=== PATIENT | female | born 1985 | race African-American/Black ===

== ENCOUNTER 2017-06-05 10:50 | Emergency (ER) | payer OTHER ==
[2017-06-05 11:11] VITALS: BP 171/111; BMI 42.8
== END 2017-06-05 13:25 | disposition left against medical advice (07) ==
LOC: ER 11:22
DX: R06.02 Shortness of breath (principal)
CPT/HCPCS: 99281

== ENCOUNTER 2017-06-06 02:07 | Emergency (ER) | payer OTHER ==
[2017-06-06 02:23] VITALS: BP 160/87; BMI 38.9
--- NOTE | 2017-06-06 02:36 | DR.GENAD ---
HPI - PCP Primary Care Physician: nfd - HPI Comment HPI Comment: Pt c/o increase nervousness, heart racing, sweaty palms, facial flushing and trembling all over for ~ 1month. she denies fever ,chills and sweats. - Complaint/Symptoms Chief Complaint Doctors Comments: " I get so nervous" Chief Complaint:: shaking, jittery Self Treatment fo Chief Complaint: pt took dramamine at home around 2330 - Nurses notes reviewed Nurses Notes Review: Yes - Source History Provided: Patient - Mode of Arrival Mode of Arrival: EMS - Timing Onset of Chief Complaint: 05/07/17 Came on: Suddenly - Duration Duration: Intermittent - Severity Severity: Moderate PMH - PMH Past Medical History: Yes Past Medical History: Hypertension Past Surgical History: No - Family History History of Family Medical Conditions: Yes Family Medical History: Hypertension - Social History Does patient currently use any type of tobacco product: No Have you used tobacco products in the last 12 months: No Type of Tobacco Use: None Does any household member use tobacco: No Alcohol Use: None Do you use any recreational Drugs:: No Lives With: Family Lives Where: Home - infectious screening In the last 2 months have you had wt loss of >10#?: NO Have you had fever, night sweats or hemotysis?: No Have you traveled outside the country in the last 6 months?: No Isolation: Standard ROS - Review of Systems Constitutional: Irritable Eyes: No Symptoms Reported ENTM: No Symptoms Reported Respiratoy: Short of Breath Cardiovascular: Palpitations Gastrointestinal/Abdominal: No Symptoms Reported Genitourinary: No Symptoms Reported Neurological: Anxiety, Tingling, Tremors Musculoskeletal: No Symptoms Reported Integumentary: No Symptoms Reported Hematologic/Lymphatic: No Symptoms Reported Endocrine: No Symptoms Reported Psychiatric: No Symptoms Reported All Other Systems: Reviewed and Negative PE - Vital Signs Vitals: Temperature 98.3 F Pulse Rate 84 Respiratory Rate 16 Blood Pressure 160/87 O2 Sat by Pulse Oximetry 100 - General Limitations: No Limitations General Appearance: Alert, Anxious - Head Head Exam: Normal Inspection - Eyes Eye exam: Normal Appearance - ENT ENT Exam: Normal Exam External Ear Exam: Normal External Inspection Nose Exam: Normal Nose Exam Mouth Exam: Normal Inspection Throat Exam: Normal Inspection - Neck Neck Exam: Normal Inspection - Chest Chest Inspection: Normal Inspection - Respiratory Respiratory Exam: Normal Lung Sounds Bilat Respiratory Exam: Bilateral Clear to Auscultation - Cardiovascular Cardiovascular Exam: Regular Rate, Normal Rhythm, Normal Heart Sounds - Abdominal Exam Abdominal Exam: Normal Inspection, Normal Bowel Sounds, Soft - Extremities Extremities Exam: Normal Inspection, Full ROM - Back Back Exam: Normal Inspection, Full ROM - Neurologic Neurological Exam: Alert, Oriented X3, CN II-XII Intact - Psychiatric Psychiatric Exam: Agitated, Anxious - Skin Skin Exam: Warm, Dry, Intact, Normal Color [facility] - Differential Diagnosis Differential Diagnosis: anxiety attack, Panic attack - Diagnosis Discharge Problem: Panic attacks - Discharge Plan Condition: Stable Prescriptions: Hydroxyzine Pamoate [Vistaril] 25 mg PO BID #10 cap - Follow ups/Referrals Follow ups/Referrals: NFD,None [Primary Care Provider] - 3 days - Instructions Instructions: Panic Attacks, [id number]
[2017-06-06] MEDS ORDERED: ATIVAN INJ 2 MG VIAL ONE (02:37)
[2017-06-06] MEDS ORDERED: ATIVAN INJ 2 MG VIAL IVP ONE (02:42)
--- NOTE | 2017-06-06 02:53 | RAD ---
EXAM: Chest X-ray INDICATION: Palpitations COMPARISION: Prior exam from November 27, 2015 TECHNIQUE: AP, single view FINDINGS: The lungs are clear in the lung volumes are within normal limits. No pleural effusion or pneumothorax . The cardiac silhouette and mediastinum are normal. The regional skeleton is intact. IMPRESSION: Normal Chest X-Ray Reported By:
== END 2017-06-06 03:25 | disposition home or self-care (01) ==
LOC: ER 02:07
DX: F41.0 Panic disorder [episodic paroxysmal anxiety] (principal)
CPT/HCPCS: 71010; 93005; 93010; 96365; 96374; 99283; J2060

== ENCOUNTER 2018-02-23 15:05 | Emergency (ER) | payer OTHER ==
[2018-02-23 15:13] VITALS: BP 171/82; BMI 41.8
--- NOTE | 2018-02-23 16:19 | DR.GENAD ---
HPI - PCP Primary Care Physician: TONIO - HPI Comment HPI Comment: NO FEVER. DRAINAGE MORE TODAY. - Complaint/Symptoms Chief Complaint Doctors Comments: RIGHT AXILLAR ABSCESS DRAINING FOR FEW DAYS. SAME ABSCESS DRAIN 2WKS AGO. NOW DRAINIG AGAIN. Chief Complaint:: Pt c/o risen under right arm for about 2 weeks. About two weeks ago area popped and had a good amount of drainage with foul odor. Since then area has gotten bigger and her arm up to her should feels very tight. - Nurses notes reviewed Nurses Notes Review: Yes - Source History Provided: Patient - Mode of Arrival Mode of Arrival: Ambulatory - Timing Onset of Chief Complaint: 02/10/18 Came on: Suddenly - Duration Duration: Constant Duration: Days - Severity Severity: Moderate PMH - PMH Past Medical History: Yes Past Medical History: Hypertension Past Surgical History: No - Family History History of Family Medical Conditions: Yes Family Medical History: Hypertension - Social History Does patient currently use any type of tobacco product: No Have you used tobacco products in the last 12 months: No Type of Tobacco Use: None Does any household member use tobacco: Yes Alcohol Use: None Do you use any recreational Drugs:: No Lives With: Spouse Lives Where: Home - infectious screening In the last 2 months have you had wt loss of >10#?: NO Have you had fever, night sweats or hemotysis?: No Have you traveled outside the country in the last 6 months?: No Isolation: Standard ROS - Review of Systems Constitutional: No Symptoms Reported Eyes: No Symptoms Reported ENTM: No Symptoms Reported Respiratoy: No Symptoms Reported Cardiovascular: No Symptoms Reported Gastrointestinal/Abdominal: No Symptoms Reported Genitourinary: No Symptoms Reported Neurological: No Symptoms Reported Musculoskeletal: Muscle Pain Integumentary: Change in Color, Other (RIGHT AXILLA ABSCESS DRAINING.) Hematologic/Lymphatic: No Symptoms Reported Endocrine: No Symptoms Reported All Other Systems: Reviewed and Negative PE - Vital Signs Vitals: Temperature 97.6 F Pulse Rate 90 Respiratory Rate 20 Blood Pressure 171/82 O2 Sat by Pulse Oximetry 100 - General Limitations: No Limitations General Appearance: Alert - Head Head Exam: Normal Inspection - Eyes Eye exam: Normal Appearance - ENT ENT Exam: Normal External Ear Exam External Ear Exam: Normal External Inspection TM/Canal Exam: Bilateral Normal Nose Exam: Normal Nose Exam Mouth Exam: Normal Inspection Throat Exam: Normal Inspection - Neck Neck Exam: Trachea Midline - Chest Chest Inspection: Symmetric Chest Wall Rise - Respiratory Respiratory Exam: Normal Lung Sounds Bilat Respiratory Exam: Bilateral Clear to Auscultation - Cardiovascular Cardiovascular Exam: Regular Rate, Normal Rhythm, Normal Heart Sounds - Abdominal Exam Abdominal Exam: Normal Bowel Sounds, Soft. negative: Tenderness - Extremities Extremities Exam: Normal Inspection - Back Back Exam: Normal Inspection - Neurologic Neurological Exam: Alert, Oriented X3, CN II-XII Intact. negative: Motor Sensory Deficit - Psychiatric Psychiatric Exam: Normal Affect, Normal Mood - Skin Skin Exam: Erythema, Other (RT AXILLA ABSCESS DRAINIG. SICE OF SARAH JULINE.) MDM - Additional Information Additional Information Obtained From: Family - Differential Diagnosis Differential Diagnosis: ABSCESS AND CELLULITIS RT AXILLA. Course - Treatment Treatment: SEE ORDERS. - Education/Counseling Education/Counseling: Patient, Education Educated On: Treatment, Diagnosis, Needs for Follow Up ROR - Labs Reviewed Laboratory: 02/23/18 16:39 Axilla - Right Gram Stain - Final - Diagnosis Discharge Problem: Abscess Cellulitis Qualifiers: Site of cellulitis: extremity Site of cellulitis of extremity: axilla Laterality: right Qualified Code(s): L03.111 - Cellulitis of right axilla - Discharge Plan Disposition: 01 HOME, SELF-CARE Condition: Stable Prescriptions: Ibuprofen [MOTRIN TAB 800 MG *] 800 mg PO Q8H PRN #30 tab PRN Reason: Pain/Inflammation Sulfamethoxazole-Trimethoprim [BACTRIM DS TAB 800/160 MG *] 1 tab PO BID #20 tab - Follow ups/Referrals Follow ups/Referrals: NFD,None [Primary Care Provider] - 3 days - Instructions Instructions: Skin Abscess, Diwo-vi-Uett, Cellulitis, Adult, Zuyy-mr-Afuk Additional Instructions: RETURN TO ED IF WORSE.
[2018-02-23] MEDS ORDERED: MOTRIN TAB 800 MG PO ONE ×2 (17:05→17:13)
[2018-02-23] MEDS ORDERED: BACTRIM DS TAB PO ONE ×2 (17:05→17:13)
== END 2018-02-23 17:15 | disposition home or self-care (01) ==
LOC: ER 15:19
DX: L02.411 Cutaneous abscess of right axilla (principal); L03.111 Cellulitis of right axilla; B96.4 Proteus (mirabilis) (morganii) as the cause of diseases classified elsewhere
CPT/HCPCS: 87070; 87075; 87077; 87186; 87205; 99282; 99283

== ENCOUNTER 2021-07-06 07:27 | Inpatient (IN) ==
[2021-07-06] MEDS ORDERED: LR 1000 ML IV 1,000 ML IV ONE (07:34)
[2021-07-06] MEDS ORDERED: ANCEF 1 GRAM IV PREMIX* 2 G/100 ML BAG IV ONE (07:35)
[2021-07-06] MEDS ORDERED: ZEMURON 50 MG VIAL ONE (08:46)
[2021-07-06] MEDS ORDERED: FENTANYL VIAL INJ 100 mcg ONE (08:46)
[2021-07-06] MEDS ORDERED: BRIDION ONE (08:46)
[2021-07-06 09:02] LABS: SERUM PREGNANCY TEST, QUAL NEGATIVE <10 mIU/mL
[2021-07-06] MEDS ORDERED: SUPRANE ONE ×2 (09:03→09:39)
[2021-07-06] MEDS ORDERED: VERSED ONE (09:03)
[2021-07-06] MEDS ORDERED: DIPRIVAN VIAL ONE (09:03)
[2021-07-06] MEDS ORDERED: XYLOCAINE 2 % (PLAIN) ONE (09:03)
[2021-07-06] MEDS ORDERED: LTA KIT LIDOCAINE 4% ONE (09:03)
[2021-07-06] MEDS ORDERED: ZOFRAN INJ 4 MG VIAL ONE (09:03)
[2021-07-06] MEDS ORDERED: DECADRON INJ ONE (09:03)
[2021-07-06] MEDS ORDERED: XYLOCAINE 1 % (PLAIN) ONE (09:09)
[2021-07-06] MEDS ORDERED: POLYMYXIN B SULFATE ONE (09:09)
[2021-07-06] MEDS ORDERED: MARCAINE 0.5% ONE (09:24)
[2021-07-06] MEDS ORDERED: VANCOMYCIN HCL ONE (09:46)
[2021-07-06] MEDS ORDERED: NS 100 ML IV 100 ML ONE ×2 (09:47→09:51)
[2021-07-06] MEDS ORDERED: MARCAINE or SENSORCAINE 0.25% WITH EPI IJ ONE (10:21)
[2021-07-06] MEDS ORDERED: BARHEMSYS INJ IVP PRN (10:45)
[2021-07-06] MEDS ORDERED: BENADRYL INJ 50 MG VIAL IVP PRN (10:45)
[2021-07-06] MEDS ORDERED: PHENERGAN INJ 25 MG IM PRN (10:45)
[2021-07-06] MEDS ORDERED: ZOFRAN INJ 4 MG VIAL IVP PRN ×2 (10:45→11:09)
[2021-07-06] MEDS ORDERED: REGLAN INJ 10 MG VIAL IVP PRN (10:45)
[2021-07-06] MEDS ORDERED: DILAUDID INJ ONE (10:47)
[2021-07-06] MEDS: DILAUDID INJ IVP PRN ×4 (10:50→11:15)
[2021-07-06 10:58] VITALS: BMI 47.1
[2021-07-06] MEDS ORDERED: PERCOCET TAB 5/325 MG PO PRN (11:09)
[2021-07-06] MEDS: VANCOMYCIN IV *PREMIX 1 G/200 ML BAG 1 G/200 ML PIGGYBACK IV SCH ×2 (12:17→21:45)
--- NOTE | 2021-07-06 12:40 | OR.IMMED ---
Immediate Post-Op Note - Immediate Post-Op Note Pre-Op Diagnosis: recurrent hydradenitis suppurativa with abscesses and sinuses Post-Op Diagnosis: same with multiple abscesses and sinus tracts , induration with chronic and acute infection both axilla .... Procedure: excision , debridement of bilateral hydradenitis with packing . Surgeon/Revenue Accountant: Dr Alexander Specimens Removed: skin and sub cutaneous tissue Drains: Roberto Complications: none . Condition: Stable (to keep on IV ATB , pain control .)
[2021-07-06] MEDS: MELATONIN PO PRN (23:00)
[2021-07-07 06:42] LABS: BASOPHILS % (AUTO) 0.5 % (0.2-1.0); EOSINOPHILS % (AUTO) 0.1 % (0.9-2.9); HEMATOCRIT 37.1 % (36.0-47.0); HEMOGLOBIN 12.9 g/dL (12.0-16.0); LYMPHOCYTES # (AUTO) 2.3 X10^3/uL (1.3-2.9); LYMPHOCYTES % (AUTO) 27.6 % (21.0-51.0); MEAN CORPUSCULAR HEMOGLOBIN 30.5 pg (27.0-34.0); MEAN CORPUSCULAR HGB CONC 34.9 g/dL (33.0-35.0); MEAN CORPUSCULAR VOLUME 87.7 fL (80.0-100.0); MEAN PLATELET VOLUME 7.4 fL (7.4-11.0); MONOCYTES # (AUTO) 0.5 x10^3/uL (0.3-0.8); MONOCYTES % (AUTO) 6.4 % (0.0-13.0); NEUTROPHILS # (AUTO) 5.5 x10^3/uL (2.2-4.8); NEUTROPHILS % (AUTO) 65.4 % (42.0-75.0); PLATELET COUNT 294 X10^3/uL (150.0-450.0); RED BLOOD COUNT 4.23 X10^6/uL (3.5-5.4); RED CELL DISTRIBUTION WIDTH 12.9 % (11.6-16.5); WHITE BLOOD COUNT 8.4 X10^3/uL (3.6-10.0)
[2021-07-07 06:59] LABS: ALANINE AMINOTRANSFERASE 19 Units/L (12-78); ALBUMIN 3.2 g/dL (3.4-5.0); ALKALINE PHOSPHATASE 52 Units/L (46-116); ASPARTATE AMINO TRANSFERASE 13 Units/L (15-37); BLOOD UREA NITROGEN 7 mg/dL (7-18); CALCIUM 8.4 mg/dL (8.5-10.1); CARBON DIOXIDE 23.7 mmol/L (21-32); CHLORIDE 104 mmol/L (98-107); COR NA(FOR HYPERGLY) 136 mmol/L (136-145); CREATININE 0.64 mg/dL (0.55-1.02); SODIUM 135 mmol/L (136-145); eGFR NON BLACK RACES > 60 (>60)
[2021-07-07] MEDS: VANCOMYCIN IV *PREMIX 1 G/200 ML BAG 1 G/200 ML PIGGYBACK IV SCH ×2 (08:12→21:37)
--- NOTE | 2021-07-07 09:04 | DR.PROGNOT ---
Hospital Progress Notes - Progress Note for Day of: Progress Note Date: 07/07/21 - Chief Complaint Chief Complaint: having moderate drainage through the dressings .. CBC and CMP are normal .. BS 125 - Past Medical Family Social History Past Med/Fam/Surg Hx: No changes since H&P Allergies: Allergies sulfamethoxazole [From Bactrim] Adverse Reaction (Intermediate, Verified 07/06/21 07:50) blisters trimethoprim [From Bactrim] Adverse Reaction (Intermediate, Verified 07/06/21 07:50) blisters - Review Of Systems ROS: No change since H&P - Vital Signs Vital Signs: Temperature 97.9 F Pulse Rate [Left Brachial] 76 Pulse Rate 66 Respiratory Rate 18 Blood Pressure [Left Arm] 137/63 Blood Pressure 128/84 O2 Sat by Pulse Oximetry 98 - Physical Exam Oriented: Normal Eyes: Normal Ear: Normal Nose: Normal Throat: Normal Respiratory: Normal Cardiovascular: Normal Skin: Other (no active infection .. multiple incisions both axilla ) Mood Description: Calm, Happy, Anxious, Appropriate Speech Pattern: Clear, Appropriate - Laboratory and Diagnostics Result Diagrams: 07/07/21 05:44 07/07/21 05:44 Labs: 07/06/21 10:13 Axilla - Left Wound Gram Stain - Final 07/06/21 10:13 Axilla - Left Wound Gram Stain - Final Laboratory WBC 8.4 X10^3/uL (3.6-10.0) 07/07/21 05:44 RBC 4.23 X10^6/uL (3.5-5.4) 07/07/21 05:44 Hgb 12.9 g/dL (12.0-16.0) 07/07/21 05:44 Hct 37.1 % (36.0-47.0) 07/07/21 05:44 MCV 87.7 fL (80.0-100.0) 07/07/21 05:44 MCH 30.5 pg (27.0-34.0) 07/07/21 05:44 MCHC 34.9 g/dL (33.0-35.0) 07/07/21 05:44 RDW 12.9 % (11.6-16.5) 07/07/21 05:44 Plt Count 294 X10^3/uL (150.0-450.0) 07/07/21 05:44 MPV 7.4 fL (7.4-11.0) 07/07/21 05:44 Neut % (Auto) 65.4 % (42.0-75.0) 07/07/21 05:44 Lymph % (Auto) 27.6 % (21.0-51.0) 07/07/21 05:44 [place] % (Auto) 6.4 % (0.0-13.0) 07/07/21 05:44 Eos % (Auto) 0.1 % (0.9-2.9) L 07/07/21 05:44 Baso % (Auto) 0.5 % (0.2-1.0) 07/07/21 05:44 Neut # (Auto) 5.5 x10^3/uL (2.2-4.8) H 07/07/21 05:44 Lymph # (Auto) 2.3 X10^3/uL (1.3-2.9) 07/07/21 05:44 [place] # (Auto) 0.5 x10^3/uL (0.3-0.8) 07/07/21 05:44 Eos # (Auto) 0.0 x10^3/uL (0.0-0.2) 07/07/21 05:44 Baso # (Auto) 0.0 X10^3/uL (0.0-0.1) 07/07/21 05:44 Absolute Nucleated RBC 0.1 /100WBC 07/07/21 05:44 Sodium 135 mmol/L (136-145) L 07/07/21 05:44 Corrected Sodium 136 mmol/L (136-145) 07/07/21 05:44 Potassium 4.1 mmol/L (3.5-5.1) 07/07/21 05:44 Chloride 104 mmol/L (98-107) 07/07/21 05:44 Carbon Dioxide 23.7 mmol/L (21-32) 07/07/21 05:44 BUN 7 mg/dL (7-18) 07/07/21 05:44 Creatinine 0.64 mg/dL (0.55-1.02) 07/07/21 05:44 Est GFR (MDRD) Af Amer > 60 (>60) 07/07/21 05:44 Est GFR (MDRD) Non-Af > 60 (>60) 07/07/21 05:44 Glucose 149 mg/dL (65-99) H 07/07/21 05:44 Calcium 8.4 mg/dL (8.5-10.1) L 07/07/21 05:44 Corrected Calcium 9.0 mg/dL (8.5-10.1) 07/07/21 05:44 Total Bilirubin 0.30 mg/dL (0.2-1.0) 07/07/21 05:44 AST 13 Units/L (15-37) L 07/07/21 05:44 ALT 19 Units/L (12-78) 07/07/21 05:44 Alkaline Phosphatase 52 Units/L (46-116) 07/07/21 05:44 Total Protein 7.0 g/dL (6.4-8.2) 07/07/21 05:44 Albumin 3.2 g/dL (3.4-5.0) L 07/07/21 05:44 Globulin 3.8 g/dL (2.5-4.5) 07/07/21 05:44 Albumin/Globulin Ratio 0.8 Ratio (1.1-2.1) L 07/07/21 05:44 HCG, Qual Negative <10 mIU/mL 07/06/21 08:12 Random Vancomycin 5.0 ug/mL 07/07/21 05:44 SARS-CoV-2 (PCR) Positive (NEGATIVE) A 07/06/21 10:29 Influenza Type A (PCR) Negative (NEGATIVE) 07/06/21 10:29 Influenza Type B (PCR) Negative (NEGATIVE) 07/06/21 10:29 RSV (PCR) Negative (NEGATIVE) 07/06/21 10:29 Tissue Pathology To follow 07/06/21 10:43 - Assessment and Plan 1: recurrent hydradenitis .. s/p multiple excisions with packings of all open wounds both axilla . obesity . border line DM . same IV Vancomycin and local care . to keep over the week end .
[2021-07-07 21:14] LABS: CREATININE 0.72 mg/dL (0.55-1.02); VANCOMYCIN,TROUGH 3.4 ug/mL (15-20)
[2021-07-07] MEDS: MELATONIN PO PRN (21:32)
[2021-07-08] MEDS: VANCOMYCIN IV *PREMIX 1 G/200 ML BAG 1 G/200 ML PIGGYBACK IV SCH ×2 (08:12→20:23)
[2021-07-08] MEDS: TYLENOL 325 MG TAB PO PRN ×2 (13:15→20:17)
--- NOTE | 2021-07-08 16:11 | DR.PROGNOT ---
Hospital Progress Notes - Progress Note for Day of: Progress Note Date: 07/08/21 - Chief Complaint Chief Complaint: having moderate drainage through the dressings .. CBC and CMP are normal .. A1C 5.7. afebrile . - Past Medical Family Social History Past Med/Fam/Surg Hx: No changes since H&P Allergies: Allergies sulfamethoxazole [From Bactrim] Adverse Reaction (Intermediate, Verified 07/06/21 07:50) blisters trimethoprim [From Bactrim] Adverse Reaction (Intermediate, Verified 07/06/21 07:50) blisters - Review Of Systems ROS: No change since H&P - Vital Signs Vital Signs: Temperature 98.7 F Pulse Rate [Left Brachial] 82 Pulse Rate 66 Respiratory Rate 20 Blood Pressure [Left Arm] 159/90 Blood Pressure 128/84 O2 Sat by Pulse Oximetry 98 - Physical Exam Oriented: Normal Eyes: Normal Ear: Normal Nose: Normal Throat: Normal Respiratory: Normal Cardiovascular: Normal Skin: Other (no active infection .. multiple incisions both axilla ) Mood Description: Calm, Happy, Anxious, Appropriate Speech Pattern: Clear, Appropriate - Laboratory and Diagnostics Result Diagrams: 07/07/21 05:44 07/07/21 20:40 Labs: 07/06/21 10:13 Axilla - Left Wound Gram Stain - Final 07/06/21 10:13 Axilla - Left Wound Culture - Preliminary 07/06/21 10:13 Axilla - Left Wound Gram Stain - Final 07/06/21 10:13 Axilla - Left Wound Culture - Preliminary Laboratory WBC 8.4 X10^3/uL (3.6-10.0) 07/07/21 05:44 RBC 4.23 X10^6/uL (3.5-5.4) 07/07/21 05:44 Hgb 12.9 g/dL (12.0-16.0) 07/07/21 05:44 Hct 37.1 % (36.0-47.0) 07/07/21 05:44 MCV 87.7 fL (80.0-100.0) 07/07/21 05:44 MCH 30.5 pg (27.0-34.0) 07/07/21 05:44 MCHC 34.9 g/dL (33.0-35.0) 07/07/21 05:44 RDW 12.9 % (11.6-16.5) 07/07/21 05:44 Plt Count 294 X10^3/uL (150.0-450.0) 07/07/21 05:44 MPV 7.4 fL (7.4-11.0) 07/07/21 05:44 Neut % (Auto) 65.4 % (42.0-75.0) 07/07/21 05:44 Lymph % (Auto) 27.6 % (21.0-51.0) 07/07/21 05:44 [place] % (Auto) 6.4 % (0.0-13.0) 07/07/21 05:44 Eos % (Auto) 0.1 % (0.9-2.9) L 07/07/21 05:44 Baso % (Auto) 0.5 % (0.2-1.0) 07/07/21 05:44 Neut # (Auto) 5.5 x10^3/uL (2.2-4.8) H 07/07/21 05:44 Lymph # (Auto) 2.3 X10^3/uL (1.3-2.9) 07/07/21 05:44 [place] # (Auto) 0.5 x10^3/uL (0.3-0.8) 07/07/21 05:44 Eos # (Auto) 0.0 x10^3/uL (0.0-0.2) 07/07/21 05:44 Baso # (Auto) 0.0 X10^3/uL (0.0-0.1) 07/07/21 05:44 Absolute Nucleated RBC 0.1 /100WBC 07/07/21 05:44 Sodium 135 mmol/L (136-145) L 07/07/21 05:44 Corrected Sodium 136 mmol/L (136-145) 07/07/21 05:44 Potassium 4.1 mmol/L (3.5-5.1) 07/07/21 05:44 Chloride 104 mmol/L (98-107) 07/07/21 05:44 Carbon Dioxide 23.7 mmol/L (21-32) 07/07/21 05:44 BUN 7 mg/dL (7-18) 07/07/21 05:44 Creatinine 0.72 mg/dL (0.55-1.02) 07/07/21 20:40 Est GFR (MDRD) Af Amer > 60 (>60) 07/07/21 05:44 Est GFR (MDRD) Non-Af > 60 (>60) 07/07/21 05:44 Glucose 149 mg/dL (65-99) H 07/07/21 05:44 Hemoglobin A1c 5.6 % 07/07/21 05:44 Calcium 8.4 mg/dL (8.5-10.1) L 07/07/21 05:44 Corrected Calcium 9.0 mg/dL (8.5-10.1) 07/07/21 05:44 Total Bilirubin 0.30 mg/dL (0.2-1.0) 07/07/21 05:44 AST 13 Units/L (15-37) L 07/07/21 05:44 ALT 19 Units/L (12-78) 07/07/21 05:44 Alkaline Phosphatase 52 Units/L (46-116) 07/07/21 05:44 Total Protein 7.0 g/dL (6.4-8.2) 07/07/21 05:44 Albumin 3.2 g/dL (3.4-5.0) L 07/07/21 05:44 Globulin 3.8 g/dL (2.5-4.5) 07/07/21 05:44 Albumin/Globulin Ratio 0.8 Ratio (1.1-2.1) L 07/07/21 05:44 HCG, Qual Negative <10 mIU/mL 07/06/21 08:12 Vancomycin Trough 3.4 ug/mL (15-20) L 07/07/21 20:40 Random Vancomycin 5.0 ug/mL 07/07/21 05:44 SARS-CoV-2 (PCR) Positive (NEGATIVE) A 07/06/21 10:29 Influenza Type A (PCR) Negative (NEGATIVE) 07/06/21 10:29 Influenza Type B (PCR) Negative (NEGATIVE) 07/06/21 10:29 RSV (PCR) Negative (NEGATIVE) 07/06/21 10:29 Tissue Pathology To follow 07/06/21 10:43 - Assessment and Plan 1: recurrent hidradenitis .. s/p multiple excisions and extensive debridement with packings of all open wounds both axilla . obesity . borderline DM . same IV Vancomycin and local care . for repacking with IV sedation in am
[2021-07-08] MEDS ORDERED: NS 100 ML IV 100 ML ONE (19:47)
[2021-07-08] MEDS: MELATONIN PO PRN (20:17)
[2021-07-09 08:47] LABS: CREATININE 0.77 mg/dL (0.55-1.02); VANCOMYCIN,TROUGH 6.3 ug/mL (15-20)
[2021-07-09] MEDS: VANCOMYCIN IV *PREMIX 1 G/200 ML BAG 1 G/200 ML PIGGYBACK IV SCH (08:58)
[2021-07-09] MEDS ORDERED: KETALAR ONE (11:04)
[2021-07-09] MEDS ORDERED: NS 250 ML IV 250 ML IV ONE (11:16)
[2021-07-09] MEDS ORDERED: XYLOCAINE 2 % (PLAIN) ONE (11:18)
[2021-07-09] MEDS ORDERED: DIPRIVAN VIAL ONE (11:18)
[2021-07-09] MEDS ORDERED: VERSED ONE (11:18)
--- NOTE | 2021-07-09 13:54 | DR.PROGNOT ---
Hospital Progress Notes - Progress Note for Day of: Progress Note Date: 07/09/21 - Chief Complaint Chief Complaint: having moderate drainage through the dressings .. all dressings were changed with IV sedation .. all packings were changed . CBC and CMP are normal .. A1C 5.7. afebrile . - Past Medical Family Social History Past Med/Fam/Surg Hx: No changes since H&P Allergies: Allergies sulfamethoxazole [From Bactrim] Adverse Reaction (Intermediate, Verified 07/06/21 07:50) blisters trimethoprim [From Bactrim] Adverse Reaction (Intermediate, Verified 07/06/21 07:50) blisters - Review Of Systems ROS: No change since H&P - Vital Signs Vital Signs: Temperature 98.5 F Pulse Rate [Left Brachial] 62 Pulse Rate 66 Respiratory Rate 18 Blood Pressure [Left Arm] 134/57 Blood Pressure 128/84 O2 Sat by Pulse Oximetry 98 - Physical Exam Oriented: Normal Eyes: Normal Ear: Normal Nose: Normal Throat: Normal Respiratory: Normal Cardiovascular: Normal Skin: Other (no active infection .. multiple incisions both axilla ) Mood Description: Calm, Happy, Anxious, Appropriate Speech Pattern: Clear, Appropriate - Laboratory and Diagnostics Result Diagrams: 07/07/21 05:44 07/09/21 08:09 Labs: 07/06/21 10:13 Axilla - Left Wound Gram Stain - Final 07/06/21 10:13 Axilla - Left Wound Culture - Preliminary 07/06/21 10:13 Axilla - Left Wound Gram Stain - Final 07/06/21 10:13 Axilla - Left Wound Culture - Preliminary Laboratory WBC 8.4 X10^3/uL (3.6-10.0) 07/07/21 05:44 RBC 4.23 X10^6/uL (3.5-5.4) 07/07/21 05:44 Hgb 12.9 g/dL (12.0-16.0) 07/07/21 05:44 Hct 37.1 % (36.0-47.0) 07/07/21 05:44 MCV 87.7 fL (80.0-100.0) 07/07/21 05:44 MCH 30.5 pg (27.0-34.0) 07/07/21 05:44 MCHC 34.9 g/dL (33.0-35.0) 07/07/21 05:44 RDW 12.9 % (11.6-16.5) 07/07/21 05:44 Plt Count 294 X10^3/uL (150.0-450.0) 07/07/21 05:44 MPV 7.4 fL (7.4-11.0) 07/07/21 05:44 Neut % (Auto) 65.4 % (42.0-75.0) 07/07/21 05:44 Lymph % (Auto) 27.6 % (21.0-51.0) 07/07/21 05:44 [place] % (Auto) 6.4 % (0.0-13.0) 07/07/21 05:44 Eos % (Auto) 0.1 % (0.9-2.9) L 07/07/21 05:44 Baso % (Auto) 0.5 % (0.2-1.0) 07/07/21 05:44 Neut # (Auto) 5.5 x10^3/uL (2.2-4.8) H 07/07/21 05:44 Lymph # (Auto) 2.3 X10^3/uL (1.3-2.9) 07/07/21 05:44 [place] # (Auto) 0.5 x10^3/uL (0.3-0.8) 07/07/21 05:44 Eos # (Auto) 0.0 x10^3/uL (0.0-0.2) 07/07/21 05:44 Baso # (Auto) 0.0 X10^3/uL (0.0-0.1) 07/07/21 05:44 Absolute Nucleated RBC 0.1 /100WBC 07/07/21 05:44 Sodium 135 mmol/L (136-145) L 07/07/21 05:44 Corrected Sodium 136 mmol/L (136-145) 07/07/21 05:44 Potassium 4.1 mmol/L (3.5-5.1) 07/07/21 05:44 Chloride 104 mmol/L (98-107) 07/07/21 05:44 Carbon Dioxide 23.7 mmol/L (21-32) 07/07/21 05:44 BUN 7 mg/dL (7-18) 07/07/21 05:44 Creatinine 0.77 mg/dL (0.55-1.02) 07/09/21 08:09 Est GFR (MDRD) Af Amer > 60 (>60) 07/07/21 05:44 Est GFR (MDRD) Non-Af > 60 (>60) 07/07/21 05:44 Glucose 149 mg/dL (65-99) H 07/07/21 05:44 Hemoglobin A1c 5.6 % 07/07/21 05:44 Calcium 8.4 mg/dL (8.5-10.1) L 07/07/21 05:44 Corrected Calcium 9.0 mg/dL (8.5-10.1) 07/07/21 05:44 Total Bilirubin 0.30 mg/dL (0.2-1.0) 07/07/21 05:44 AST 13 Units/L (15-37) L 07/07/21 05:44 ALT 19 Units/L (12-78) 07/07/21 05:44 Alkaline Phosphatase 52 Units/L (46-116) 07/07/21 05:44 Total Protein 7.0 g/dL (6.4-8.2) 07/07/21 05:44 Albumin 3.2 g/dL (3.4-5.0) L 07/07/21 05:44 Globulin 3.8 g/dL (2.5-4.5) 07/07/21 05:44 Albumin/Globulin Ratio 0.8 Ratio (1.1-2.1) L 07/07/21 05:44 HCG, Qual Negative <10 mIU/mL 07/06/21 08:12 Vancomycin Trough 6.3 ug/mL (15-20) L 07/09/21 08:09 Random Vancomycin 5.0 ug/mL 07/07/21 05:44 SARS-CoV-2 (PCR) Positive (NEGATIVE) A 07/06/21 10:29 Influenza Type A (PCR) Negative (NEGATIVE) 07/06/21 10:29 Influenza Type B (PCR) Negative (NEGATIVE) 07/06/21 10:29 RSV (PCR) Negative (NEGATIVE) 07/06/21 10:29 Tissue Pathology To follow 07/06/21 10:43 - Assessment and Plan 1: recurrent hidradenitis .. s/p multiple excisions and extensive debridement with packings of all open wounds both axilla . obesity . borderline DM . to D/C today and follow in one week .
[2021-07-09 14:00] VITALS: BP 130/80
[2021-07-09] MEDS ORDERED: VANCOMYCIN IV *PREMIX 1 G/200 ML BAG 1 G/200 ML PIGGYBACK IV ONE (14:00)
== END 2021-07-09 16:30 | disposition home or self-care (01) | DRG 576 ==
LOC: SURG1 07:27 → MED/SURG 11:19
PROVIDERS: ADMIT Surgery; ATTEND Surgery
DX: L02.411 Cutaneous abscess of right axilla; B96.4 Proteus (mirabilis) (morganii) as the cause of diseases classified elsewhere; U07.1 COVID-19; L02.412 Cutaneous abscess of left axilla; L73.2 Hidradenitis suppurativa; E66.9 Obesity, unspecified; R73.09 Other abnormal glucose

== ENCOUNTER 2023-08-20 01:30 | Inpatient (IN) ==
[2023-08-20 02:43] LABS: HEMOGLOBIN 12.4 g/dL (12.0-16.0); MEAN PLATELET VOLUME 7.3 fL (7.4-11.0); WHITE BLOOD COUNT 5.5 X10^3/uL (3.6-10.0)
[2023-08-20] MEDS ORDERED: LR 1,000 ML IV 1,000 ML IV ONE ×3 (02:47→05:23)
[2023-08-20 02:50] LABS: ALANINE AMINOTRANSFERASE 15 Units/L (12-78); ALBUMIN 2.7 g/dL (3.4-5.0); ALKALINE PHOSPHATASE 51 Units/L (46-116); ASPARTATE AMINO TRANSFERASE 15 Units/L (15-37); BLOOD UREA NITROGEN 2 mg/dL (7-18); CALCIUM 8.2 mg/dL (8.5-10.1); CARBON DIOXIDE 23.5 mmol/L (21-32); CHLORIDE 102 mmol/L (98-107); COR CA(FOR HYPOALB) 9.2 mg/dL (8.5-10.1); CREATININE 0.52 mg/dL (0.55-1.02); GLUCOSE 106 mg/dL (65-99); POTASSIUM 3.8 mmol/L (3.5-5.1); SODIUM 133 mmol/L (136-145); TOTAL PROTEIN 6.8 g/dL (6.4-8.2); eGFR NON BLACK RACES > 60 (>60)
[2023-08-20 02:54] LABS: BASOPHILS % (AUTO) 0.4 % (0.2-1.0); EOSINOPHILS # (AUTO) 0.1 x10^3/uL (0.0-0.2); EOSINOPHILS % (AUTO) 2.6 % (0.9-2.9); HEMATOCRIT 35.9 % (36.0-47.0); LYMPHOCYTES # (AUTO) 2.1 X10^3/uL (1.3-2.9); LYMPHOCYTES % (AUTO) 37.8 % (21.0-51.0); MEAN CORPUSCULAR HGB CONC 34.5 g/dL (33.0-35.0); MONOCYTES # (AUTO) 0.4 x10^3/uL (0.3-0.8); MONOCYTES % (AUTO) 7.3 % (0.0-13.0); NEUTROPHILS # (AUTO) 2.9 x10^3/uL (2.2-4.8); NEUTROPHILS % (AUTO) 51.9 % (42.0-75.0); PLATELET COUNT 232 X10^3/uL (150.0-450.0); RED BLOOD COUNT 4.13 X10^6/uL (3.5-5.4); RED CELL DISTRIBUTION WIDTH 13.3 % (11.6-16.5)
[2023-08-20 03:34] LABS: AMNISURE ROM TEST NO MEMBRANES RUPTURE (NO RUPTURE)
[2023-08-20] MEDS ORDERED: ZOFRAN INJ 4 MG VIAL ONE ×2 (03:52→08:03)
[2023-08-20] MEDS ORDERED: ZOFRAN INJ 4 MG VIAL IVP PRN ×2 (03:53→09:10)
[2023-08-20 04:04] VITALS: BMI 47.2
--- NOTE | 2023-08-20 04:08 | DR.PREG ---
HPI Time seen Time Seen by Provider: 08/20/23 02:22 Chief Complaint Chief Complaint Doctors Comments: Pelvic cramping, mild vaginal bleeding COVID-19 Coronavirus risk:travel/contact w/high risk person: No Has patient experienced Coronavirus symptoms: No Nurses Notes Reviewed Nurses Notes Review: Yes Source History Provided: Patient Mode of Arrival Mode of Arrival: Ambulatory Context Complains of: Contractions and Vaginal bleeding History of: None Care: Yes Location Location: pain: Suprapubic Quality Pain: Cramping Vaginal fluid leakage color: None Duration Pain Strength: Moderate Severity Vaginal Bleeding: Mild (bloody show) Associated Signs & Symptoms Asociated signs & symptoms: None PMH PMH Past Medical History: Anxiety and Hypertension Past Surgical History: No Surgical History: Other Family History Family Medical History: Hypertension Social History Do you use any recreational Drugs:: No ROS Review of Systems Genitourinary: See HPI and Bleeding PE Vital Signs Vitals: Vital Signs Temperature 98.6 F Pulse Rate 87 Respiratory Rate 20 Blood Pressure 174/101 O2 Sat by Pulse Oximetry 97 General Limitations: No Limitations General Appearance: Alert and In No Apparent Distress Head Head Exam: Normal Inspection, Atraumatic and Normocephalic Eyes Eye exam: Normal Appearance, PERRL and EOMI ENT ENT Exam: Normal Exam Neck Neck Exam: Normal Inspection Chest Chest Inspection: Normal Inspection Respiratory Respiratory Exam: Normal Lung Sounds Bilat Cardiovascular Cardiovascular Exam: Regular Rate Abdominal Exam Abdominal Exam: Normal Inspection, Normal Bowel Sounds and Soft Contractions: Bleeding Uterine Size: Consistent with dates Dilation: Finger tip Effacement: Soft Fluid leakage with cough: Positive Back Back Exam: Normal Inspection Extremeties Extremities Exam: Normal Inspection Neurologic Neurological Exam: Alert, Oriented X3, CN II-XII Intact, Normal Gait and Reflexes Normal Psychiatric Psychiatric Exam: Normal Affect and Normal Mood Skin Skin Exam: Warm, Dry and Intact COURSE Treatment Treatment: Labs, Zofran, Morphine Reevaluation 1st: Resolved ROR Labs Reviewed Laboratory Results Reviewed?: Yes 08/20/23 02:16 08/20/23 02:16 Laboratory: WBC 5.5 X10^3/uL (3.6-10.0) 08/20/23 02:16 RBC 4.13 X10^6/uL (3.5-5.4) 08/20/23 02:16 Hgb 12.4 g/dL (12.0-16.0) 08/20/23 02:16 Hct 35.9 % (36.0-47.0) L 08/20/23 02:16 MCV 87.0 fL (80.0-100.0) 08/20/23 02:16 MCH 30.0 pg (27.0-34.0) 08/20/23 02:16 MCHC 34.5 g/dL (33.0-35.0) 08/20/23 02:16 RDW 13.3 % (11.6-16.5) 08/20/23 02:16 Plt Count 232 X10^3/uL (150.0-450.0) 08/20/23 02:16 MPV 7.3 fL (7.4-11.0) L 08/20/23 02:16 Neut % (Auto) 51.9 % (42.0-75.0) 08/20/23 02:16 Lymph % (Auto) 37.8 % (21.0-51.0) 08/20/23 02:16 Letcher % (Auto) 7.3 % (0.0-13.0) 08/20/23 02:16 Eos % (Auto) 2.6 % (0.9-2.9) 08/20/23 02:16 Baso % (Auto) 0.4 % (0.2-1.0) 08/20/23 02:16 Neut # (Auto) 2.9 x10^3/uL (2.2-4.8) 08/20/23 02:16 Lymph # (Auto) 2.1 X10^3/uL (1.3-2.9) 08/20/23 02:16 Letcher # (Auto) 0.4 x10^3/uL (0.3-0.8) 08/20/23 02:16 Eos # (Auto) 0.1 x10^3/uL (0.0-0.2) 08/20/23 02:16 Baso # (Auto) 0.0 X10^3/uL (0.0-0.1) 08/20/23 02:16 Absolute Nucleated RBC 0.1 /100WBC 08/20/23 02:16 Sodium 133 mmol/L (136-145) L 08/20/23 02:16 Corrected Sodium TNP 08/20/23 02:16 Potassium 3.8 mmol/L (3.5-5.1) 08/20/23 02:16 Chloride 102 mmol/L (98-107) 08/20/23 02:16 Carbon Dioxide 23.5 mmol/L (21-32) 08/20/23 02:16 BUN 2 mg/dL (7-18) L 08/20/23 02:16 Creatinine 0.52 mg/dL (0.55-1.02) L 08/20/23 02:16 Est GFR (MDRD) Af Amer > 60 (>60) 08/20/23 02:16 Est GFR (MDRD) Non-Af > 60 (>60) 08/20/23 02:16 Glucose 106 mg/dL (65-99) H 08/20/23 02:16 Calcium 8.2 mg/dL (8.5-10.1) L 08/20/23 02:16 Corrected Calcium 9.2 mg/dL (8.5-10.1) 08/20/23 02:16 Total Bilirubin 0.30 mg/dL (0.2-1.0) 08/20/23 02:16 AST 15 Units/L (15-37) 08/20/23 02:16 ALT 15 Units/L (12-78) 08/20/23 02:16 Alkaline Phosphatase 51 Units/L (46-116) 08/20/23 02:16 Total Protein 6.8 g/dL (6.4-8.2) 08/20/23 02:16 Albumin 2.7 g/dL (3.4-5.0) L 08/20/23 02:16 Globulin 4.1 g/dL (2.5-4.5) 08/20/23 02:16 Albumin/Globulin Ratio 0.7 Ratio (1.1-2.1) L 08/20/23 02:16 HCG, Quant 82316 mIU/mL (0-6) H 08/20/23 02:16 Placental [id number] No membranes rupture (NO RUPTURE) 08/20/23 02:00 Opioid Opioid Risk Tool Age (Kyle box if 16-45): Yes History of Preadolescent Sexual Abuse: No Total: 1 Total Score Risk Category: Low Risk Copyright: Ian HANSEN predicting aberrant behaviors Discharge Plan Diagnosis Discharge Problem: Spontaneous at 8 to 28 weeks gestation Hospital Course Hospital Course: Spontaneous ; fetus vaginal delivery; placenta vaginal delivery; OB consulted; pt to follow up in AM with OB Discharge Plan Patient Disposition: 01 HOME, SELF-CARE Condition: Stable Prescriptions: No Action nitrofurantoin monohyd/m-cryst 100 mg capsule 1 cap PO BID ondansetron HCl 8 mg tablet 8 mg PO Q8H PRN labetalol 300 mg tablet 300 mg PO BID Vitamin 27 mg iron- 800 mcg tablet 1 tab PO QDAY Health Concerns: Post Hospitalization: new medications and changes needed to prevent readmission or further decline. Pt educated and given instructions on all concerns. Plan of Treatment: Continue with present treatment and follow up plan. Pt is to keep follow up appointment as instructed and take medications as ordered. Orders to Discharge Patient Discharge Orders: Discharge (Routine); Ordered 08/20/23 Ordered By: Vikas Whitten Follow ups/Referrals Follow ups/Referrals: Ronald Hull [Primary Care Provider] - 3 days Instructions Stand Alone Forms: Post Hospital Follow Up Care
[2023-08-20] MEDS ORDERED: MOTRIN TAB 800 MG PO PRN (04:31)
[2023-08-20] MEDS ORDERED: MOTRIN TAB 800 MG PO ONE (04:45)
[2023-08-20] MEDS ORDERED: PITOCIN IVP ONE (04:58)
[2023-08-20] MEDS ORDERED: LR IV SCH (05:00)
[2023-08-20] MEDS ORDERED: PITOCIN IV SCH (05:00)
[2023-08-20] MEDS ORDERED: PITOCIN ONE (05:22)
[2023-08-20 05:35] LABS: HEMATOCRIT 29.9 % (36.0-47.0); HEMOGLOBIN 10.5 g/dL (12.0-16.0)
[2023-08-20] MEDS ORDERED: FENTANYL VIAL INJ 100 mcg ONE (08:03)
[2023-08-20] MEDS ORDERED: XYLOCAINE 2 % (PLAIN) ONE (08:03)
[2023-08-20] MEDS ORDERED: VERSED ONE (08:03)
[2023-08-20] MEDS ORDERED: PEPCID 20 MG VIAL ONE (08:03)
[2023-08-20] MEDS ORDERED: DIPRIVAN VIAL 20 ML ONE (08:03)
[2023-08-20] MEDS ORDERED: REGLAN INJ 10 MG VIAL ONE (08:03)
[2023-08-20] MEDS ORDERED: NS 100 ML IV 100 ML ONE (08:11)
[2023-08-20] MEDS ORDERED: ANCEF VIAL 1 GRAM ONE (08:11)
[2023-08-20] MEDS ORDERED: BETADINE SOLN ONE (08:12)
[2023-08-20] MEDS ORDERED: SUPRANE ONE ×2 (08:21→09:46)
[2023-08-20] MEDS ORDERED: TORADOL 30 MG VIAL ONE (08:48)
[2023-08-20] MEDS ORDERED: OFIRMEV IV 1000 MG VIAL 1,000 MG/100 ML VIAL IV ONE (08:49)
[2023-08-20] MEDS ORDERED: DILAUDID INJ IVP PRN (09:10)
[2023-08-20] MEDS ORDERED: BENADRYL INJ 50 MG VIAL IVP PRN (09:10)
[2023-08-20] MEDS ORDERED: REGLAN INJ 10 MG VIAL IVP PRN (09:10)
[2023-08-20] MEDS ORDERED: BARHEMSYS INJ IVP PRN (09:10)
[2023-08-20] MEDS ORDERED: PERCOCET TAB 5/325 MG PO PRN (09:37)
[2023-08-20] MEDS ORDERED: TORADOL 30 MG VIAL IVP PRN (09:37)
[2023-08-20] MEDS: LR 1,000 ML IV 1,000 ML IV SCH ×3 (11:29→20:56)
[2023-08-20] MEDS: NORMODYNE TAB 200 MG PO SCH (20:55)
[2023-08-21] MEDS: LR 1,000 ML IV 1,000 ML IV SCH ×2 (04:20→12:27)
[2023-08-21 06:24] LABS: HEMATOCRIT 22.1 % (36.0-47.0)
[2023-08-21 06:28] LABS: HEMOGLOBIN 7.9 g/dL (12.0-16.0)
[2023-08-21] MEDS ORDERED: PRENATAL PLUS PO SCH (09:00)
[2023-08-21] MEDS: NORMODYNE TAB 200 MG PO SCH (09:04)
[2023-08-21] MEDS: INFeD or DEXFERRUM 25 MG in NS 100 ML IV 100 ML IV ONE ×2 (09:26→12:22)
[2023-08-21] MEDS ORDERED: TOPROL XL PO SCH (10:00)
[2023-08-21] MEDS ORDERED: ZOFRAN INJ 4 MG VIAL IVP PRN (10:28)
[2023-08-21] MEDS ORDERED: INFeD or DEXFERRUM 975 MG in NS 500 ML IV 500 ML IV ONE ×2 (11:30→13:00)
[2023-08-21] MEDS ORDERED: TOPROL XL PO ONE (12:37)
[2023-08-21 15:29] VITALS: RESP 18; TEMP 98.7
[2023-08-23 17:09] VITALS: O2SAT 100
[2023-08-23 17:48] VITALS: BP 128/82; PULSE 85
== END 2023-08-21 16:50 | disposition home or self-care (01) | DRG 807 ==
LOC: ER 01:34 → LD 02:10 → MED/SURG 04:17
PROVIDERS: ADMIT Obstetrics & Gynecology Obstetrics; ATTEND Obstetrics & Gynecology Obstetrics
DX: Z3A.20 20 weeks gestation of pregnancy; O03.4 Incomplete spontaneous abortion without complication; Z37.1 Single stillbirth